=== PATIENT | male | born 1965 | race Caucasian/White ===

== ENCOUNTER 2024-08-08 06:36 | Day surgery (SDC) | payer OTHER, SELFPAY ==
--- NOTE | 2024-08-07 07:30 | LES_PTH ---
PATIENT: RASHMI BERNAL LOC: [facility] [place] U#:[id number] AGE/SX: 59/M ROOM: RE08/08/[address]: Dr. Kayla Barry MD : 1965 BED: DIS: 08/08/2024 SPEC #: [id number] RECD: 08/08/24 10:19 STATUS: VEDA SAMUEL #: [id number] KATHLEEN: 08/07/24 07:[address]: Kayla Barry DEPT: SURGICAL PATHOLOGY RECD BY: Sourav Baxter ENTERED: 08/08/24 11:05 SP TYPE: Lesion OTHR DR: Dr. Milo Cruz, ., MD Tissues: A - Skin of eyelid, NOS B - Skin of neck, NOS Procedures: Surgery Specimen Level IV HEADER OPERATION: Excision skin tags x2 left eyelid, shave lesion left neck PRE-OP DIAGNOSIS: Neoplasm of uncertain behavior of skin TISSUE SUBMITTED: A- Skin lesions left eyelid x2, B- Neoplasm of uncertain behavior of skin left neck MICROSCOPIC DIAGNOSIS A. Skin lesions of left eyelid x2: Fibroepithelial polyps. B. Skin lesion of left neck: Pigmented seborrheic keratosis. PW. 08/11/2024 MICROSCOPIC DESCRIPTION Slides are reviewed. GROSS DESCRIPTION A. Received in fixative is one container labeled with the patient's name and designated Skin lesion left eyelid x2. The specimen consists of a piece of foy-white skin measuring 0.3 x 0.1 x <0.1cm. Also present in the container is a smaller piece of foy-brown skin measuring 0.2 x 0.1 x 0.1cm. The entire specimen is submitted in one cassette. B. Received in fixative is one container labeled with the patient's name and designated Neoplasm of uncertain behavior of skin left neck. The specimen consists of a piece of foy-brown skin measuring 0.7 x 0.5 x 0.1cm. This piece is inked and serially sectioned. Also present in the container are two pieces of foy-brown skin measuring 1.0 x 0.2 x 0.1cm and 0.5 x 0.5 x 0.1cm. The entire specimen is submitted in one cassette. SJ. 08/08/2024 TC:5 SJ. 08/08/2024 CPT:51025i4
[2024-08-08] VITALS (9 sets, daily range): BP systolic 120–132; BP diastolic 61–86; PULSE 75–97; RESP 16; TEMP 36.4–36.8; O2SAT 96–97; BMI 32.0
--- NOTE | 2024-08-08 07:12 | PCM.HP.BLA ---
History and Physical Date of Admission: 08/08/24 The patient was examined and there are no changes to the H&P dated 07/30/24. Pt for removal of lesions of his left eyelid and neck. The specimens will be submitted for pathologic evaluation. Assessment & Plan Assessment/Plan (1) Neoplasm of uncertain behavior of skin: PLAN: Plan For excision of lesion of upper eyelid and neck. Pt marked in the pre-op area. Informed consent obtained.
[2024-08-08] MEDS: Lidocaine 1% /Epi 1:100 9 ML, Sodium Bicarbonate 1 MEQ OPERA.SITE (07:59)
[2024-08-08] MEDS: Neomycin/Polymyxin/Dexameth OINT 3.5GM OPTH.TUBE 1 APPLIC (08:00)
--- NOTE | 2024-08-08 08:06 | EX.PCM.DISCH ---
Discharge Instructions Dressing / Incision Additional Dressing/Incision Instructions:: Apply a thin layer of the antibiotic ointment to the eyelid and left neck once a day. May leave the Band-Aid off the neck when there is no further drainage. May shower over the areas but do not scrub. Follow Up Care Please Follow Up With: Kayla Barry MD When: In 1 to 2 weeks Test Results: Test results from this visit will be discussed in further detail at your follow-up appointment, if applicable. Discharge Plan Admission Attending Provider: Kayla Barry Primary Care Provider: Milo Cruz Jr. Instructions Print Language: Mauritian Discharge Orders/Prescriptions Prescriptions: No Action atorvastatin 20 mg tablet 20 mg PO QDAY amlodipine-benazepril 10-20 mg capsule 1 cap PO QDAY Referrals / Follow Up: Milo Cruz Jr., PA [Primary Care Provider] - Disposition Disposition (needs filled in before D/C Order can be placed): Home, Self Care
--- NOTE | 2024-08-08 08:08 | PCM.OPRPT ---
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 Type of Anesthesia: Local RN Documented Start/Stop Times: Operation Date: 08/08/24 07:30 Case Time Into Pre-Op 08/08/24 06:47 Out of Pre-Op 08/08/24 07:30 Anesthesia Start 08/08/24 07:33 Into Room 08/08/24 07:33 Procedure Start 08/08/24 07:50 Procedure End 08/08/24 08:01 Anesthesia End 08/08/24 08:03 Out of Room 08/08/24 08:03 Procedure Start Time: 07:50 Procedure Stop Time: 08:01 Select all DRAINS/GRAFTS/IMPLANTS that apply: None Estimated Blood Loss: Minimal Fluids Replaced: Cheryl Specimen collected: Yes Description of specimen(s) removed: Neoplasms of left upper eyelid and left neck Description of surgery: The patient presents with 2 growing or changing lesions of the left upper eyelid and the left neck. He presents for excision of the lesions of the eyelid and shave of the lesion of the left neck with submission for pathologic evaluation. The patient is brought to the operating room and placed on the operating room table in supine position. The eyelid and neck are prepped and draped in the usual sterile fashion. We initially began with clipping the lesions of the eyelid. These are passed off the operative field to be sent to pathology. Ophthalmic antibiotic ointment is placed on the site. We then directed our attention to the neoplasm of the neck and after this is anesthetized with 1% Xylocaine with epinephrine buffered with sodium bicarb, the neoplasm is shaved at the base and the base fulgarized. Antibiotic ointment and a Band-Aid is placed on the site. He tolerated the procedure well was taken to the recovery area in an awake and stable condition. Needle and sponge counts are correct. Surgical Findings: As above Complications Complications: No Admit VTE Documentation VTE Mechan Device Prophylaxis: None Reason prophylaxis not ordered: Treatment Not Indicated
== END 2024-08-08 08:19 | disposition home or self-care (01) ==
LOC: SDC 06:38 → AC 06:39
PROVIDERS: PCP Physician Assistant; Referring Provider Plastic Surgery; Visit Provider Plastic Surgery
PROC: (CPT 11441; principal; 2024-08-08 07:20)
DX: D48.5 Neoplasm of uncertain behavior of skin (principal); L91.8 Other hypertrophic disorders of the skin; L82.1 Other seborrheic keratosis; Z79.899 Other long term (current) drug therapy
CPT/HCPCS: 11441; 11306